=== PATIENT | male | born 1995 | race Caucasian/White ===

== ENCOUNTER 2019-05-09 21:26 | Emergency (ER) | payer BC ==
--- NOTE | 2019-05-09 21:29 | ER Report ---
History and Physical Time Seen By MD: 21:27 HPI/ROS CHIEF COMPLAINT: Left arm numbness HISTORY OF PRESENT ILLNESS: 23-year-old male with a history of testicular cancer who is a survivor on follow-up balance. Patient woke up today after 45 minute nap with numbness in his left arm. He had an episode one week ago. White anxious about this. Patient has no history of neck problems or trauma. Patient also notes palpitations and anxiety type symptoms. Patient's not sought any treatment for either of these episodes. His symptoms have resolved now. He notes some mild paresthesias of his left arm. REVIEW OF SYSTEMS: Respiratory: No cough, no dyspnea. Cardiovascular: No chest pain, no palpitations. Gastrointestinal: No vomiting, no abdominal pain. Musculoskeletal: No back pain. Allergies: Coded Allergies: No Known Drug Allergies (Unverified , 05/09/19) Home Meds No Active Prescriptions or Reported Meds Reviewed Nurses Notes: Yes Old Medical Records Reviewed: Yes Constitutional Vital Sign - Last 24 Hours 05/09/19 05/09/19 05/09/19 05/09/19 21:30 21:30 21:41 21:56 Temp 97.6 Pulse 67 75 B/P (MAP) 145/97 (113) Pulse Ox 96 91 05/09/19 05/09/19 05/09/19 05/09/19 22:00 22:11 22:26 22:30 Pulse 67 59 B/P (MAP) 118/86 (97) 116/91 (99) Pulse Ox 94 94 05/09/19 22:35 Pulse 59 Pulse Ox 96 Physical Exam General Appearance: The patient is alert, has no immediate need for airway protection and no current signs of toxicity. Vital signs stable, afebrile, mildly tachycardic HEENT: Pupils equal and round no injection. TMs normal, oropharynx without redness or exudate, mucous numbers are moist Respiratory: Chest is non tender, lungs are clear to auscultation. Cardiac: regular rate and rhythm Gastrointestinal: Abdomen is soft and non tender, no masses, bowel sounds normal. Musculoskeletal: Neck: Neck is supple and non tender. There is no aggravation of the symptoms with compression and rotation of the cervical spine. Extremities have full range of motion and are non tender. Skin: No rashes or lesions. Neuro alert and oriented 3, cranial nerves II through XII intact motor 5/5 goat herder, sensory intact to light touch 4, cerebellum grossly intact DIFFERENTIAL DIAGNOSIS: After history and physical exam differential diagnosis was considered for weakness including but not limited to electrolyte abnormality, depression, anxiety, CVA, spinal cord abnormality, testicular cancer reoccurrence and infectious causes. Medical Decision Making Data Points Result Diagram: 05/09/19213805/09/192138 Laboratory Hematology Test 05/09/19 21:39 Red Blood Count 4.87 M/uL (4.00-5.60) Mean Corpuscular Volume 94.6 fL (80.0-96.0) Mean Corpuscular Hemoglobin 33.9 pg (26.0-33.0) Mean Corpuscular Hemoglobin Concent 35.8 g/dL (32.0-36.0) Red Cell Distribution Width 12.8 % (11.5-14.5) Mean Platelet Volume 7.9 fL (7.2-11.1) Neutrophils (%) (Auto) 48.1 % (39.4-72.5) Lymphocytes (%) (Auto) 37.1 % (17.6-49.6) Monocytes (%) (Auto) 11.5 % (4.1-12.4) Eosinophils (%) (Auto) 2.3 % (0.4-6.7) Basophils (%) (Auto) 1.0 % (0.3-1.4) Nucleated RBC Relative Count (auto) 0.1 /100WBC Neutrophils # (Auto) 2.8 K/uL (2.0-7.4) Lymphocytes # (Auto) 2.2 K/uL (1.3-3.6) Monocytes # (Auto) 0.7 K/uL (0.3-1.0) Eosinophils # (Auto) 0.1 K/uL (0.0-0.5) Basophils # (Auto) 0.1 K/uL (0.0-0.1) Nucleated RBC Absolute Count (auto) 0.00 K/uL Sodium Level 140 mmol/L (137-145) Potassium Level 4.0 mmol/L (3.5-5.0) Chloride Level 99 mmol/L (98-107) Carbon Dioxide Level 29 mmol/L (22-30) Blood Urea Nitrogen 16 mg/dl (9-21) Creatinine 1.00 mg/dl (0.66-1.25) Glomerular Filtration Rate Calc > 60.0 Random Glucose 108 mg/dl (75-110) Calcium Level 9.5 mg/dl (8.4-10.2) Total Bilirubin 0.5 mg/dl (0.2-1.3) Aspartate Amino Transf (AST/SGOT) 29 U/L (0-35) Alanine Aminotransferase (ALT/SGPT) 32 U/L (0-56) Alkaline Phosphatase 80 U/L (0-126) Total Protein 8.2 g/dl (6.3-8.2) Albumin 4.7 g/dl (3.5-5.0) Chemistry Test 05/09/19 21:39 White Blood Count 5.9 k/uL (4.5-11.0) Red Blood Count 4.87 M/uL (4.00-5.60) Hemoglobin 16.5 g/dL (14.0-18.0) Hematocrit 46.0 % (42.0-52.0) Mean Corpuscular Volume 94.6 fL (80.0-96.0) Mean Corpuscular Hemoglobin 33.9 pg (26.0-33.0) Mean Corpuscular Hemoglobin Concent 35.8 g/dL (32.0-36.0) Red Cell Distribution Width 12.8 % (11.5-14.5) Platelet Count 344 K/uL (150-450) Mean Platelet Volume 7.9 fL (7.2-11.1) Neutrophils (%) (Auto) 48.1 % (39.4-72.5) Lymphocytes (%) (Auto) 37.1 % (17.6-49.6) Monocytes (%) (Auto) 11.5 % (4.1-12.4) Eosinophils (%) (Auto) 2.3 % (0.4-6.7) Basophils (%) (Auto) 1.0 % (0.3-1.4) Nucleated RBC Relative Count (auto) 0.1 /100WBC Neutrophils # (Auto) 2.8 K/uL (2.0-7.4) Lymphocytes # (Auto) 2.2 K/uL (1.3-3.6) Monocytes # (Auto) 0.7 K/uL (0.3-1.0) Eosinophils # (Auto) 0.1 K/uL (0.0-0.5) Basophils # (Auto) 0.1 K/uL (0.0-0.1) Nucleated RBC Absolute Count (auto) 0.00 K/uL Glomerular Filtration Rate Calc > 60.0 Calcium Level 9.5 mg/dl (8.4-10.2) Total Bilirubin 0.5 mg/dl (0.2-1.3) Aspartate Amino Transf (AST/SGOT) 29 U/L (0-35) Alanine Aminotransferase (ALT/SGPT) 32 U/L (0-56) Alkaline Phosphatase 80 U/L (0-126) Total Protein 8.2 g/dl (6.3-8.2) Albumin 4.7 g/dl (3.5-5.0) EKG/Imaging EKG Interpretation 12 lead EK Rhythm: normal sinus rhythm Dawson: normal QRS: normal ST segments: normal, no evidence of ischemia or dysrhythmia Imaging Results: CT scan of the head without contrast was obtained. The results of the study are no acute findings. The study was read by the radiologist. I viewed the images myself on the PACS system. ED Course/Re-evaluation ED Course Patient was admitted to an examination room. H&P was done. The differential diagnosis was considered. Patient with left arm numbness 2 episodes, approximately one week apart. Patient's 2nd episode was likely related to falling asleep on his left shoulder, crushing his left brachial plexus. Patient's symptoms resolved spontaneously. Very shortly after he woke up from his nap. Patient has a lot of associated anxiety related to his previous history of testicular cancer. Diagnostic studies were unremarkable. A head CT was unremarkable. An EKG was negative for evidence of dysrhythmia. Patient's reassured that he likely has paresthesias that are not related to any pathologic cause. He is advised to take ibuprofen and follow up with his sustainability specialist to her, keeping him under surveillance. Decision to Disposition Date: May 09, 2019 Decision to Disposition Time: 22:15 Depart Departure Latest Vital Signs Vital Signs Date Time Temp Pulse Resp B/P (MAP) Pulse Ox O2 Delivery O2 Flow Rate FiO2 05/09/19 22:35 59 96 05/09/19 22:30 116/91 (99) 05/09/19 21:30 97.6 Impression: Primary Impression: Arm paresthesia, left Additional Impression: History of testicular cancer Condition: Improved Disposition: HOME OR SELF-CARE New Scripts No Active Prescriptions or Reported Meds Patient Instructions: Paresthesia (ED) Problem Qualifiers TERESITA POWER DO May 09, 2019 21:29
[2019-05-09 22:22] LABS: PLATELET COUNT, AUTOMATED 344 K/uL (150-450)
[2019-05-09 22:30] VITALS: BP 116/91
--- NOTE | 2019-05-09 22:34 | RADIOLOGY IMAGING REPORT ---
FACILITY: [facility] PATIENT NAME: Denny Breen : 1995 MR: [id number] V: [id number] EXAM DATE: ORDERING PHYSICIAN: TERESITA POWER TECHNOLOGIST: Location: [facility] [place] Patient: Denny Breen : 1995 Visit/Account:[id number] Date of Sevice: 05/09/[address] scan without contrast HISTORY: L arm numbness HX testicular CA COMPARISONS: None TECHNIQUE: Non-contrast head CT was performed with sagittal and coronal reformations. One of the following dose optimization techniques was utilized in the performance of this exam: autom ated exposure control; adjustment of the mA and/or kV according to patient size; or use of iterative reconstruction technique. Specific details can be referenced in the facility's radiology CT exam ope rational policy. FINDINGS: There is no intracranial hemorrhage, hydrocephalus or midline shift. The basal cisterns, callejas-white differentiation, and convexity sulci are maintained. Normal orbital soft tissues. The mastoid air cells are clear. The paranasal sinuses are clear. The osseous structures are normal . IMPRESSION: No acute intracranial abnormality. Normal head CT. Report Dictated By: Gustavo Flores MD at 05/09/2019 10:26 PM Report E-Signed By: Gustavo Flores MD at 05/09/2019 10:29 PM WSN:[id number]
--- NOTE | 2019-05-10 01:24 | EKG ---
FACILITY: [facility] PATIENT NAME: MILY GRAY : [id number] MR: [id number] V: [id number] EXAM DATE: ORDERING PHYSICIAN: TERESITA POWER TECHNOLOGIST: SAGAR Quick Reason : Blood Pressure : / mmHG Vent. Rate : 066 BPM Atrial Rate : 066 BPM P-R Int : 138 ms QRS Dur : 082 ms QT Int : 376 ms P-R-T Axes : 059 064 041 degrees QTc Int : 394 ms Normal sinus rhythm Normal ECG No previous ECGs available Confirmed by DARVIN REYES ([id number]) on 05/10/2019 6:28:39 AM Referred By: Confirmed By:DARVIN REYES
== END 2019-05-09 22:58 | disposition home or self-care (01) ==
LOC: ER 21:59
DX: R20.0 Anesthesia of skin (principal); Z85.47 Personal history of malignant neoplasm of testis
CPT/HCPCS: 36415; 70450; 82040; 82247; 82310; 82374; 82435; 82565; 82947; 84075; 84132; 84155; 84295; 84450; 84460; 84520; 85025; 93005; 99284